=== PATIENT | female | born 1955 | race Two or more races ===

== ENCOUNTER 2016-09-17 09:57 | Day surgery (SDC) | payer OTHER ==
[2016-09-16 09:30] VITALS: BP 148/81
[2016-09-16 09:55] LABS: BLOOD UREA NITROGEN 9 mg/dL (7-18)
[2016-09-16 09:59] LABS: ASPARTATE AMINO TRANSFERASE 13 U/L (15-37)
[~2016-09-17] VITALS: Ht 157.5 cm; Wt 67.0 kg
[~2016-09-17 09:57] MED LIST: AMLO5TAB2 PO; BUPIVACAINE/PF-EPI 0.5% 1:200K ONE; INSU100C SQ-INSULIN; INSU100V8 SQ; LISI40TA PO; LOVA20TA2 PO; METFORMIN PO; SITA100T PO
[2016-09-17] MEDS ORDERED: LACTATED RINGERS 1,000 ML IV SCH ×2 (10:15→13:41)
[2016-09-17] MEDS ORDERED: LIDOCAINE 1%, 2ML ONE (10:16)
[2016-09-17 10:19] VITALS: BP 148/81
[2016-09-17] MEDS ORDERED: LIDOCAINE 1%, 2ML SQ PRN (10:30)
[2016-09-17] MEDS ORDERED: DEXTROSE 50%, 50ML SYRINGE IVPush STA (11:17)
[2016-09-17] MEDS ORDERED: DEXTROSE 50%, 50ML SYRINGE ONE (11:19)
[2016-09-17] MEDS ORDERED: FENTANYL PF 250 MCG/5ML ONE (11:36)
[2016-09-17] MEDS ORDERED: MIDAZOLAM 1 MG/ML, 2ML ONE (11:36)
[2016-09-17] MEDS ORDERED: EPHEDRINE 50 MG/ML, 1ML IVPush PRN (12:00)
[2016-09-17] MEDS ORDERED: HYDROmorphone 1 MG/ML, 1ML IV PRN (12:00)
[2016-09-17] MEDS ORDERED: MEPERIDINE/PF 25MG/0.5ML IVPush PRN (12:00)
[2016-09-17] MEDS ORDERED: HYDROcodone/APAP 7.5-325MG/15ML UDC PO PRN (12:00)
[2016-09-17] MEDS ORDERED: MIDAZOLAM 1 MG/ML, 2ML IV PRN (12:00)
[2016-09-17] MEDS ORDERED: FENTANYL PF 100 MCG/2ML IV PRN (12:00)
[2016-09-17] MEDS ORDERED: PROMETHAZINE 25 MG/ML, 1ML IV PRN (12:00)
[2016-09-17] MEDS ORDERED: ACETAMINOPHEN 325 MG TABLET PO PRN (12:00)
[2016-09-17] MEDS ORDERED: LABETALOL 5MG/ML, 20ML IV PRN (12:00)
[2016-09-17] MEDS ORDERED: ONDANSETRON 2MG/ML, 2ML IVPush PRN ×2 (12:00→14:00)
[2016-09-17] MEDS ORDERED: hydrALAzine 20 MG/ML, 1ML IV PRN (12:00)
[2016-09-17] MEDS ORDERED: OXYcodone 5 MG/5 ML ORAL.SOL UDC PO PRN (12:00)
[2016-09-17] MEDS ORDERED: ROCURONIUM 10 MG/ML ONE (13:03)
[2016-09-17] MEDS ORDERED: CEFAZOLIN 1,000 MG ONE (13:03)
[2016-09-17] MEDS ORDERED: GLYCOPYRROLATE 0.2MG/1ML ONE (13:03)
[2016-09-17] MEDS ORDERED: PROPOFOL 10 MG/ML, 20ML ONE (13:03)
[2016-09-17] MEDS ORDERED: KETOROLAC 30 MG/1 ML ONE (13:03)
[2016-09-17] MEDS ORDERED: NEOSTIGMINE 1 MG/ML, 10ML ONE (13:03)
[2016-09-17] MEDS ORDERED: SUCCINYLCHOLINE 20 MG/ML, 10ML ONE (13:03)
[2016-09-17] MEDS ORDERED: ONDANSETRON 2MG/ML, 2ML ONE (13:03)
[2016-09-17] MEDS ORDERED: HYDROcodone/APAP 5/325 TABLET PO PRN (14:00)
[2016-09-17] MEDS ORDERED: morphine SULFATE 10 MG/ML, 1ML IVPush PRN (14:00)
[2016-09-17] MEDS ORDERED: HYDROcodone/APAP 7.5-325MG/15ML UDC ONE (14:02)
== END 2016-09-17 16:35 | disposition home or self-care (01) ==
LOC: OUT 09:57
PROVIDERS: ATTEND Thoracic Surgery (Cardiothoracic Vascular Surgery)
DX: K81.1 Chronic cholecystitis (principal); I10 Essential (primary) hypertension; E11.9 Type 2 diabetes mellitus without complications; G47.33 Obstructive sleep apnea (adult) (pediatric); E78.00 Pure hypercholesterolemia, unspecified; Z87.891 Personal history of nicotine dependence
CPT/HCPCS: 36415; 47562; 80053; 82962; 88304; 93005; J0330; J0690; J1885; J2250; J2405; J2704; J2710; J3010; J3490; J7120

== ENCOUNTER 2020-12-11 22:41 | Inpatient (IN) | payer BC, OTHER ==
[~2020-12-11] VITALS: Ht 157.5 cm; Wt 68.0 kg
[~2020-12-11 22:41] MED LIST changes: +AMLO-150 PO; -AMLO5TAB2 PO; -BUPIVACAINE/PF-EPI 0.5% 1:200K ONE; -LISI40TA PO; +LISI40TA9 PO
--- NOTE | 2020-12-11 23:15 | NUR ---
PATIENT AMBULATORY TO RESTROOM, INDEPENDENTLY.
[2020-12-11 23:33] LABS: BASOPHILS % (AUTO) 1 % (0-1); EOSINOPHILS % (AUTO) 4 % (1-7); LYMPHOCYTES % (AUTO) 10 % (22-44); MEAN CORPUSCULAR HEMOGLOBIN 29.8 pg (27.0-34.8); MEAN PLATELET VOLUME 7.5 fL (7.4-10.4); MONOCYTES % (AUTO) 9 % (2-9); NEUTROPHILS % (AUTO) 76 % (42-75); PLATELET COUNT 254 x10^3/uL (130-400); RED BLOOD COUNT 3.95 x10^6/uL (3.82-5.3); RED CELL DISTRIBUTION WIDTH 13.5 % (9.6-15.2)
[2020-12-11 23:53] LABS: ALBUMIN 3.4 g/dL (3.4-5.0); ANION GAP 8 mmol/L (5-15); CHLORIDE 93 mmol/L (98-107)
[2020-12-12] LABS: ALANINE AMINOTRANSFERASE 23 U/L (12-78); ALKALINE PHOSPHATASE 85 U/L (45-117); BILIRUBIN,TOTAL 0.4 mg/dL (0.2-1.0); CREATININE 0.51 mg/dL (0.55-1.02); TOTAL PROTEIN 8.1 g/dL (6.4-8.2); TROPONIN I < 0.015 ng/mL (0.000-0.045)
--- NOTE | 2020-12-12 00:20 | NUR ---
PATIENT TO CT AT THIS TIME
--- NOTE | 2020-12-12 00:28 | NUR ---
PATIENT RETURNED FROM CT.
[2020-12-12] MEDS ORDERED: OMNIPAQUE 350 MG/ML, 75ML BOTTLE ONE (00:34)
[2020-12-12] MEDS ORDERED: AZITHROMYCIN 500 MG TABLET PO ONE (01:30)
[2020-12-12] MEDS ORDERED: AZITHROMYCIN 250 MG TABLET ONE (01:56)
[2020-12-12] MEDS ORDERED: GUAIFENESIN/DM 200-20MG, 10ML UDC PO PRN (02:00)
[2020-12-12] MEDS: INSULIN GLARGINE 100 UNITS/ML, PEN SQ-INSULIN SCH ×2 (02:00→21:38)
[2020-12-12] MEDS ORDERED: DEXTROSE 50%, 50ML SYRINGE IVPush PRN (02:00)
[2020-12-12] MEDS ORDERED: DEXTROSE 4 GM TAB.CHEW PO PRN (02:00)
[2020-12-12] MEDS ORDERED: GLUCAGON 1 MG IM PRN (02:00)
[2020-12-12] MEDS ORDERED: ACETAMINOPHEN 325 MG TABLET PO PRN (02:00)
[2020-12-12] MEDS: CEFTRIAXONE 1,000 MG in DEXTROSE 5% 50 ML IVPB SCH (02:05)
--- NOTE | 2020-12-12 02:05 | NUR ---
VINICIUS SWAB WALKED DOWN TO LAB BY THIS RN.
--- NOTE | 2020-12-12 02:21 | NUR ---
REPORT GIVEN TO FRANCIS VENTURA.
--- NOTE | 2020-12-12 03:15 | NUR ---
PATIENT PROVIDED WITH MORE WARM BLANKETS. AT BEDSIDE UPDATED ON INPATIENT ROOM NUMBER.
[2020-12-12 03:33] LABS: CHLORIDE,URINE RANDOM 78 mmol/L; POTASSIUM,URINE RANDOM 8 mmol/L; SODIUM,URINE RANDOM 76 mmol/L
[2020-12-12 04:19] VITALS: BP 158/83
[2020-12-12 08:24] VITALS: BP 126/65
[2020-12-12] MEDS: INSULIN LISPRO 100 UNITS/ML, PEN SQ-INSULIN SCH ×4 (08:34→21:37)
[2020-12-12] MEDS: SODIUM CHLORIDE FLUSH 10ML SYR IVF SCH ×2 (08:35→21:34)
[2020-12-12 13:48] VITALS: BP 121/64
[2020-12-12 20:25] VITALS: BP 148/76
[2020-12-12] MEDS: GUAIFENESIN/COD200MG-20MG/10ML LIQUID PO PRN (22:37)
[2020-12-13 00:43] VITALS: BP 120/71
[2020-12-13] MEDS: CEFTRIAXONE 1,000 MG in DEXTROSE 5% 50 ML IVPB SCH (01:37)
[2020-12-13 06:06] LABS: BASOPHILS % (AUTO) 1 % (0-1); EOSINOPHILS % (AUTO) 5 % (1-7); LYMPHOCYTES % (AUTO) 19 % (22-44); MEAN CORPUSCULAR HEMOGLOBIN 29.8 pg (27.0-34.8); MEAN CORPUSCULAR HGB CONC 34.9 g/dL (32.4-35.8); MEAN PLATELET VOLUME 7.7 fL (7.4-10.4); MONOCYTES % (AUTO) 13 % (2-9); NEUTROPHILS % (AUTO) 63 % (42-75); PLATELET COUNT 272 x10^3/uL (130-400); RED CELL DISTRIBUTION WIDTH 13.1 % (9.6-15.2)
[2020-12-13 06:09] LABS: CHLORIDE 100 mmol/L (98-107)
[2020-12-13 06:16] LABS: ALBUMIN 2.7 g/dL (3.4-5.0); ANION GAP 6 mmol/L (5-15); CALCIUM 8.4 mg/dL (8.5-10.1); CREATININE 0.49 mg/dL (0.55-1.02)
[2020-12-13] MEDS: INSULIN LISPRO 100 UNITS/ML, PEN SQ-INSULIN SCH ×4 (07:00→21:21)
[2020-12-13] MEDS: SODIUM CHLORIDE FLUSH 10ML SYR IVF SCH ×2 (09:00→21:19)
[2020-12-13 10:05] VITALS: BP 136/70
[2020-12-13 15:22] VITALS: BP 131/69
[2020-12-13] MEDS: SENNA/DOCUSATE TABLET PO SCH ×2 (17:47→21:18)
[2020-12-13] MEDS: POLYETHYLENE GLYCOL 17 GM PACKET PO SCH (17:47)
[2020-12-13 21:22] VITALS: BP 140/76
[2020-12-13] MEDS: INSULIN GLARGINE 100 UNITS/ML, PEN SQ-INSULIN SCH (21:22)
[2020-12-13] MEDS: GUAIFENESIN/COD200MG-20MG/10ML LIQUID PO PRN (21:51)
[2020-12-13 22:56] LABS: BASOPHILS % (AUTO) 0 % (0-1); EOSINOPHILS % (AUTO) 5 % (1-7); LYMPHOCYTES % (AUTO) 20 % (22-44); MEAN CORPUSCULAR HEMOGLOBIN 29.3 pg (27.0-34.8); MEAN CORPUSCULAR HGB CONC 34.6 g/dL (32.4-35.8); MEAN PLATELET VOLUME 7.4 fL (7.4-10.4); MONOCYTES % (AUTO) 11 % (2-9); NEUTROPHILS % (AUTO) 64 % (42-75); PLATELET COUNT 271 x10^3/uL (130-400); RED BLOOD COUNT 3.49 x10^6/uL (3.82-5.3); RED CELL DISTRIBUTION WIDTH 13.3 % (9.6-15.2)
[2020-12-13 23:05] LABS: ANION GAP 11 mmol/L (5-15); CALCIUM 8.2 mg/dL (8.5-10.1); CHLORIDE 97 mmol/L (98-107); CREATININE 0.55 mg/dL (0.55-1.02)
[2020-12-14 00:47] VITALS: BP 129/70
[2020-12-14] MEDS: CEFTRIAXONE 1,000 MG in DEXTROSE 5% 50 ML IVPB SCH (01:25)
[2020-12-14 07:17] VITALS: BP 129/72
[2020-12-14] MEDS: INSULIN LISPRO 100 UNITS/ML, PEN SQ-INSULIN SCH ×4 (07:37→22:40)
[2020-12-14] MEDS: SENNA/DOCUSATE TABLET PO SCH ×2 (07:38→21:59)
[2020-12-14] MEDS: POLYETHYLENE GLYCOL 17 GM PACKET PO SCH (07:38)
[2020-12-14] MEDS: SODIUM CHLORIDE FLUSH 10ML SYR IVF SCH ×2 (09:00→21:59)
[2020-12-14 14:09] VITALS: BP 156/78
[2020-12-14 20:38] VITALS: BP 165/80
[2020-12-14] MEDS: INSULIN GLARGINE 100 UNITS/ML, PEN SQ-INSULIN SCH (22:40)
[2020-12-15] MEDS: CEFTRIAXONE 1,000 MG in DEXTROSE 5% 50 ML IVPB SCH (01:18)
[2020-12-15 01:21] VITALS: BP 151/73
[2020-12-15] MEDS: INSULIN LISPRO 100 UNITS/ML, PEN SQ-INSULIN SCH ×3 (07:00→16:18)
[2020-12-15] MEDS: SENNA/DOCUSATE TABLET PO SCH ×2 (07:02→21:47)
[2020-12-15] MEDS: POLYETHYLENE GLYCOL 17 GM PACKET PO SCH (07:02)
[2020-12-15] MEDS: SODIUM CHLORIDE FLUSH 10ML SYR IVF SCH ×2 (09:00→21:00)
[2020-12-15 10:06] VITALS: BP 135/77
[2020-12-15 11:48] VITALS: BP 151/75
[2020-12-15 12:48] VITALS: BP 146/77
[2020-12-15 19:53] VITALS: BP 162/81
[2020-12-15] MEDS: INSULIN GLARGINE 100 UNITS/ML, PEN SQ-INSULIN SCH ×2 (21:00→22:52)
[2020-12-15] MEDS: INSULIN REGULAR 100 UNITS/ML, 3ML VIAL SQ-INSULIN SCH (22:53)
[2020-12-16 00:29] VITALS: BP 127/79
[2020-12-16] MEDS ORDERED: CEFTRIAXONE 1,000 MG in DEXTROSE 5% 50 ML IVPB SCH (01:30)
[2020-12-16 05:24] LABS: BASOPHILS % (AUTO) 1 % (0-1); EOSINOPHILS % (AUTO) 8 % (1-7); LYMPHOCYTES % (AUTO) 24 % (22-44); MEAN CORPUSCULAR HGB CONC 34.3 g/dL (32.4-35.8); MEAN PLATELET VOLUME 7.3 fL (7.4-10.4); MONOCYTES % (AUTO) 11 % (2-9); NEUTROPHILS % (AUTO) 56 % (42-75); PLATELET COUNT 348 x10^3/uL (130-400); RED BLOOD COUNT 3.81 x10^6/uL (3.82-5.3)
[2020-12-16 05:34] LABS: ALANINE AMINOTRANSFERASE 23 U/L (12-78); ALBUMIN 2.9 g/dL (3.4-5.0); ANION GAP 9 mmol/L (5-15); CALCIUM 8.8 mg/dL (8.5-10.1); CHLORIDE 101 mmol/L (98-107); CREATININE 0.51 mg/dL (0.55-1.02)
[2020-12-16 05:37] LABS: ALKALINE PHOSPHATASE 79 U/L (45-117); BILIRUBIN,TOTAL 0.2 mg/dL (0.2-1.0); TOTAL PROTEIN 7.7 g/dL (6.4-8.2)
[2020-12-16 06:59] VITALS: BP 137/77
[2020-12-16] MEDS: INSULIN REGULAR 100 UNITS/ML, 3ML VIAL SQ-INSULIN SCH ×4 (07:00→21:53)
[2020-12-16] MEDS ORDERED: ACETAMINOPHEN 325 MG TABLET PO PRN (08:30)
[2020-12-16] MEDS: ENOXAPARIN 40 MG/0.4 ML SQ SCH (08:55)
[2020-12-16] MEDS: POLYETHYLENE GLYCOL 17 GM PACKET PO SCH (08:56)
[2020-12-16] MEDS: SENNA/DOCUSATE TABLET PO SCH ×2 (08:56→20:48)
[2020-12-16] MEDS: SODIUM CHLORIDE FLUSH 10ML SYR IVF SCH ×2 (08:56→20:48)
[2020-12-16 12:43] VITALS: BP 138/78
[2020-12-16 21:00] VITALS: BP 149/79
[2020-12-16] MEDS: INSULIN GLARGINE 100 UNITS/ML, PEN SQ-INSULIN SCH ×2 (21:00→21:52)
[2020-12-16 23:03] VITALS: BP 147/73
[2020-12-17 05:18] LABS: HCT (SEDRATE) 31.5 % (34.6-47.8)
[2020-12-17] MEDS: INSULIN REGULAR 100 UNITS/ML, 3ML VIAL SQ-INSULIN SCH ×4 (07:00→22:35)
[2020-12-17 07:16] VITALS: BP 135/73
[2020-12-17] MEDS: ENOXAPARIN 40 MG/0.4 ML SQ SCH (07:30)
[2020-12-17] MEDS: POLYETHYLENE GLYCOL 17 GM PACKET PO SCH (07:31)
[2020-12-17] MEDS: SODIUM CHLORIDE FLUSH 10ML SYR IVF SCH ×2 (07:31→22:35)
[2020-12-17] MEDS: SENNA/DOCUSATE TABLET PO SCH ×2 (07:31→22:31)
[2020-12-17 13:36] VITALS: BP 170/77
[2020-12-17 14:12] VITALS: BP_SYST 156
[2020-12-17] MEDS: CARVEDILOL 3.125 MG TABLET PO SCH (18:40)
[2020-12-17 22:06] VITALS: BP 151/78
[2020-12-17] MEDS: INSULIN GLARGINE 100 UNITS/ML, PEN SQ-INSULIN SCH ×2 (22:23→22:34)
[2020-12-17] MEDS: GUAIFENESIN/COD200MG-20MG/10ML LIQUID PO PRN (22:46)
[2020-12-18 02:20] VITALS: BP 142/68
[2020-12-18] MEDS: CARVEDILOL 3.125 MG TABLET PO SCH (05:50)
[2020-12-18] MEDS: INSULIN REGULAR 100 UNITS/ML, 3ML VIAL SQ-INSULIN SCH ×3 (07:00→16:00)
[2020-12-18 07:33] VITALS: BP 153/77
[2020-12-18] MEDS: ENOXAPARIN 40 MG/0.4 ML SQ SCH (07:43)
[2020-12-18] MEDS: SODIUM CHLORIDE FLUSH 10ML SYR IVF SCH (07:47)
[2020-12-18] MEDS: SENNA/DOCUSATE TABLET PO SCH (07:47)
[2020-12-18] MEDS: POLYETHYLENE GLYCOL 17 GM PACKET PO SCH (07:47)
[2020-12-18] MEDS: metFORMIN 850 MG TABLET PO SCH ×2 (08:00→16:09)
[2020-12-18] MEDS ORDERED: CARV6.2512 PO (11:41)
[2020-12-18] MEDS ORDERED: INSU100V5 SQ-INSULIN (11:41)
[2020-12-18] MEDS ORDERED: METF850T10 PO (11:41)
[2020-12-18 13:47] VITALS: BP 134/75
[2020-12-18] MEDS ORDERED: CARVEDILOL 6.25 MG TABLET PO SCH (18:00)
== END 2020-12-18 17:16 | disposition home or self-care (01) | DRG 640 ==
LOC: ED 23:11 → SUATTDRO 12-12 01:16 → OBSVTOIN 12-12 02:09 → EDIP 12-12 02:09 → INTOOBSV 12-12 02:09 → 3N 12-12 03:39
PROVIDERS: ADMIT Student in an Organized Health Care Education/Training Program; ATTEND Internal Medicine
DX: E87.1 Hypo-osmolality and hyponatremia (principal); J16.8 Pneumonia due to other specified infectious organisms; B49 Unspecified mycosis; R04.2 Hemoptysis; J98.4 Other disorders of lung; Z20.822 Contact with and (suspected) exposure to COVID-19; E11.65 Type 2 diabetes mellitus with hyperglycemia; F17.210 Nicotine dependence, cigarettes, uncomplicated; I10 Essential (primary) hypertension; Z79.4 Long term (current) use of insulin; Z91.19 Patient's noncompliance with other medical treatment and regimen
CPT/HCPCS: 36415; 71275; 80048; 80053; 80069; 82436; 82570; 82962; 83036; 83930; 84133; 84300; 84484; 85025; 85651; 86140; 86480; 86635; 87015; 87040; 87116; 87206; 87305; 87449; 93005; G0378; J0696; J1650; J1815; Q9967; U0005; U0003